=== PATIENT | male | born 1995 | race African-American/Black ===

== ENCOUNTER → 2018-06-03 | Outpatient (REF) | payer OTHER ==
[2018-06-04 15:17] LABS: CHLAMYDIA DNA AMPLIFICATION NEGATIVE (NEGATIVE); GC DNA AMPLIFICATION NEGATIVE (NEGATIVE)
== END ==
LOC: M SFHCLERA 20:14
DX: Z20.2 Contact with and (suspected) exposure to infections with a predominantly sexual mode of transmission (principal)

== ENCOUNTER → 2018-10-27 | Outpatient (CLI) | payer OTHER ==
--- NOTE | 2018-10-27 14:17 | PFTRPT ---
Height: 67.00 Inches Weight: 180.00 Lbs BSA: 1.93 Diagnosis: SOB DATE OF PROCEDURE: 10/27/2018 ORDERED BY: Bo Sr Spirometry: Study of excellent technical quality. Forced vital capacity normal. FEV1 in proportion. Obstructive index is, therefore, normal. Flow Volume Loop: Expiratory limb of the flow volume loop is normal. Lung Volumes: Total lung capacity normal. Residual volume is in proportion. Diffusing Capacity: Diffusing capacity is normal. Airway Mechanics: Airway resistance and conductance are normal. IMPRESSION: Normal study. MTDD
== END ==
LOC: M CARPUL 08:05
PROVIDERS: ATTEND Clinical Nurse Specialist Psychiatric/Mental Health, Adult
DX: R06.2 Wheezing (principal)

== ENCOUNTER 2018-12-01 17:35 | Emergency (ER) | payer OTHER ==
[~2018-12-01] VITALS: Ht 170.2 cm; Wt 81.8 kg
[2018-12-01] MEDS ORDERED: KETOROLAC TROMETHAMINE 10 MG TAB PO ONE (18:30)
[2018-12-01] MEDS ORDERED: DERMABOND TOPICAL SKIN ADHESIVE TOP ONE (18:30)
--- NOTE | 2018-12-01 19:21 | REP ---
RIGHT SECOND DIGIT: Four views of the right second digit are performed. There is no acute fracture, dislocation or intrinsic bone disease. IMPRESSION: No fracture or dislocation. Electronically Signed by Bart Remy MD 12/02/2018 12:31 A
[2018-12-01 19:46] VITALS: BP 112/76
== END 2018-12-01 19:48 | disposition home or self-care (01) ==
LOC: M ED 17:35
DX: S61.210A Laceration without foreign body of right index finger without damage to nail, initial encounter (principal); W23.0XXA Caught, crushed, jammed, or pinched between moving objects, initial encounter; Y92.89 Other specified places as the place of occurrence of the external cause; Y93.B9 Activity, other involving muscle strengthening exercises

== ENCOUNTER → 2019-05-31 | Outpatient (CLI) | payer OTHER ==
[~2019-05-31] MED LIST: METHACHOLINE KIT (J7674) INH ONE
--- NOTE | 2019-05-31 11:48 | PFTRPT ---
Height: 67.00 Inches Weight: 180.00 Lbs BSA: 1.93 Diagnosis: R06 DATE OF PROCEDURE: 05/31/2019 ORDERED BY: Candis Ragsdale INTERPRETATION: Study of excellent technical quality. Marked difficulty with the required maneuvers is noted. Under protocol, methacholine was administered. At a dose of 10 mg (63.875 CDUs), a 34% decline in the FEV1 was noted, but this particular loop is markedly suboptimal. PC calculated at 4.93 is significant, but again care with interpretation of this should be taken in view of the above. Flow rates did return to baseline post bronchodilator administration. IMPRESSION: Probably positive methacholine challenge study, but clinical correlation with the above will be necessary. MTDD
== END ==
LOC: M CARPUL 10:50
PROVIDERS: ATTEND Nurse Practitioner Adult Health
DX: R06.02 Shortness of breath (principal)